=== PATIENT | male | born 1960 | race Caucasian/White ===

== ENCOUNTER 2017-07-09 04:19 | Observation (INO) | payer MEDICARE, MEDICAID ==
[2017-07-09] VITALS (10 sets, daily range): BP systolic 135–147; BP diastolic 73–84; PULSE 73–102; RESP 16–20; TEMP 96.6–97.9; O2SAT 95–98
[~2017-07-09 04:19] MED LIST: CHLO10 PO; HYDR-3535 PO; TRAZ50TA78 PO
[2017-07-09] MEDS ORDERED: IOHEXOL 350 MG/ML 10 ML VIAL (for RAD DIAG) IVCONTRAST ONE (04:20)
[2017-07-09] MEDS ORDERED: NITROGLYCERIN 2% OINT 1 GM PACKET TOP ONE (04:30)
[2017-07-09] MEDS ORDERED: ONDANSETRON HCL 4 MG/2 ML VIAL IV PUSH ONE (04:30)
[2017-07-09] MEDS ORDERED: SODIUM CHLORIDE 0.9% FLUSH 10 ML FLUSH IVF PRN (04:30)
[2017-07-09] MEDS ORDERED: MORPHINE SULFATE 4 MG/ML INJ IV PUSH ONE (04:30)
[2017-07-09] MEDS ORDERED: SODIUM CHLORID 0.9% 500 ML INJ 500 ML IV ONE (04:30)
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
[2017-07-09 04:53] LABS: AUTOMATED NEUTROPHIL # 2.8 TH/MM3 (1.8-7.7); BASOPHIL # 0.1 TH/MM3 (0-0.2); BASOPHIL % 1.3 % (0.0-2.0); EOSINOPHIL % 0.7 % (0.0-4.0); HEMATOCRIT 36.9 % (39.0-51.0); HEMOGLOBIN 12.1 GM/DL (13.0-17.0); LYMPH % 36.3 % (9.0-44.0); MEAN CELL VOLUME 87.6 FL (80.0-100.0); MEAN CORPUSCULAR HEMOGLOBIN 28.8 PG (27.0-34.0); MEAN CORPUSCULAR HGB CONC 32.8 % (32.0-36.0); MEAN PLATELET VOLUME 8.3 FL (7.0-11.0); MONO % 10.8 % (0.0-8.0); MONOCYTE # 0.6 TH/MM3 (0-0.9); NEUT % 50.9 % (16.0-70.0); PLATELET COUNT 170 TH/MM3 (150-450); RED CELL DISTRIBUTION WIDTH 16.5 % (11.6-17.2); WHITE BLOOD COUNT 5.5 TH/MM3 (4.0-11.0)
--- NOTE | 2017-07-09 04:59 | RADRPT ---
EXAM DATE/TIME: 07/09/2017 04:44 [facility] COMPARISON: CHEST PA & LAT, September 14, 2015, 9:36. INDICATIONS : Chest pain. MEDICAL HISTORY : Osteoporosis. Cardiovascular disease. SURGICAL HISTORY : Rotator cuff repair-bilateral, Bilateral hip. ENCOUNTER: Initial ACUITY: 1 day PAIN SCORE: 10/10 LOCATION: Bilateral chest FINDINGS: PA and lateral views of the chest demonstrate the lungs to be symmetrically aerated without evidence of mass, infiltrate or effusion. The cardiomediastinal contours are unremarkable. Moderate severe d egenerative changes in the mid thoracic spine, stable from 2016. CONCLUSION: No acute cardiopulmonary disease. Morris Styles MD on July 09, 2017 at 4:55 Board Certified Radiologist. This report was verified electronically.
[2017-07-09 05:01] LABS: INTERNATIONAL NORMALIZED RATIO 1.1 RATIO; PROTHROMBIN TIME - PATIENT 10.7 SEC (9.8-11.6)
[2017-07-09 05:08] LABS: ALBUMIN 3.2 GM/DL (3.4-5.0); AST (GOT) 60 U/L (15-37); BICARBONATE 22.5 MEQ/L (21.0-32.0); BLOOD UREA NITROGEN 6 MG/DL (7-18); CHLORIDE 106 MEQ/L (98-107); CREATININE 0.61 MG/DL (0.60-1.30); GLOMERULAR FILTRATION RATE 136 ML/MIN (>89); GLUCOSE,RANDOM 83 MG/DL (74-106); MAGNESIUM 1.7 MG/DL (1.5-2.5); SODIUM (NA) 141 MEQ/L (136-145)
[2017-07-09 05:09] LABS: ALT (GPT) 41 U/L (12-78)
[2017-07-09 05:12] LABS: ALKALINE PHOSPHATASE 92 U/L (45-117); TOTAL BILIRUBIN ADULT 0.3 MG/DL (0.2-1.0); TOTAL PROTEIN 8.7 GM/DL (6.4-8.2); TROPONIN I LESS THAN 0.02 NG/ML (0.02-0.05)
--- NOTE | 2017-07-09 05:53 | RADRPT ---
EXAM DATE/TIME: 07/09/2017 05:30 [facility] COMPARISON: No previous studies available for comparison. INDICATIONS : Chest pain. Hip replacement 4 weeks ago. IV CONTRAST: 75 cc Omnipaque 350 (iohexol) IV RADIATION DOSE: 9.59 CTDIvol (mGy) MEDICAL HISTORY : Deep venous thrombosis. SURGICAL HISTORY : Left hip replacement ENCOUNTER: Initial ACUITY: 1 day PAIN SCALE: 6/10 LOCATION: Bilateral chest TECHNIQUE: Volumetric scanning of the chest was performed using a pulmonary embolism protocol MIP images were re constructed. Using automated exposure control and adjustment of the mA and/or kV according to patien t size, radiation dose was kept as low as reasonably achievable to obtain optimal diagnostic quality images. DICOM format image data is available electronically for review and comparison. Follow-up recommendations for detected pulmonary nodules are based at a minimum on nodule size and pa tient risk factors according to Fleischner Society Guidelines. FINDINGS: Lungs are clear. No pleural or pericardial effusions are identified. Coronary calcification is noted. Subcentimeter mediastinal lymph nodes. There is no evidence for pulmonary embolus or pneumonia. Ther e is hepatic steatosis. Osseous structures are intact. Atherosclerotic calcifications of the aorta ar e noted. CONCLUSION: No evidence for pulmonary embolism. Atherosclerosis. Thor Diez MD on July 09, 2017 at 5:47 Board Certified Radiologist. This report was verified electronically.
[2017-07-09] MEDS: ACETAMINOPHEN/HYDROcodone 325 MG/7.5 MG TAB PO PRN ×2 (06:25→13:08)
[2017-07-09] MEDS: SODIUM CHLOR 0.9% 1000 ML INJ 1,000 ML IV SCH ×2 (06:25→16:16)
[2017-07-09] MEDS ORDERED: NITROGLYCERIN 0.4 MG SL 25 TABS/BTL SL PRN (06:30)
[2017-07-09] MEDS ORDERED: ONDANSETRON HCL 4 MG/2 ML VIAL IV PUSH PRN (06:30)
[2017-07-09] MEDS ORDERED: SODIUM CHLORIDE 0.9% FLUSH 10 ML FLUSH IV FLUSH PRN (06:30)
[2017-07-09] MEDS ORDERED: MORPHINE SULFATE 4 MG/ML INJ IV PUSH PRN (06:30)
[2017-07-09] MEDS ORDERED: ACETAMINOPHEN 500 MG CPLT PO PRN (06:30)
[2017-07-09 08:30] LABS: TROPONIN I LESS THAN 0.02 NG/ML (0.02-0.05)
[2017-07-09] MEDS ORDERED: ASPIRIN 325 MG TAB PO SCH (09:00)
[2017-07-09] MEDS ORDERED: FAMOTIDINE 20 MG TAB PO SCH (09:00)
[2017-07-09] MEDS ORDERED: SODIUM CHLORIDE 0.9% FLUSH 10 ML FLUSH IV FLUSH SCH (09:00)
[2017-07-09] MEDS ORDERED: RESP: ALBUTEROL 2.5 MG/IPRATROPIUM 0.5 MG NEB (PRN) INH (10:30)
--- NOTE | 2017-07-09 10:37 | HHI.HP ---
HPI Primary Care Physician Non-Staff Chief Complaint Chest pain History of Present Illness This is a 57-year-old male who presents to ED via [facility] with a complaint of chest discomfort. He states that he is awoken 3:00 in the morning with a pressure in the center of his chest. Discomfort was rated as an 8 out of 10. He states he was given sublingual nitroglycerin in the back which would not change his symptoms. Discomfort is still there. Morphine has seem to help. He denied shortness of breath, nausea, or diaphoresis. Admits to using crack cocaine last night and then states "but I never have a problem with cocaine." Also states he recently had a left total hip replaced 4 weeks ago at [facility]. Admits to tobacco abuse also. Also admits to being an alcoholic. States he drinks at least 12 pack of beer per day. Denies ever having DTs. Denies recent illness. Denies fevers or chills. Upon reviewing records patient had a nonischemic Lexiscan in 2013. Review of Systems General: Patient denies fevers, chills, and recent travel. HEENT: Patient denies headache, sore throat, difficulty swallowing. Cardiovascular: Has the chest discomfort as mentioned above. Denies sensation of heart beating rapidly or irregularly. No syncope. Denies diaphoresis. Respiratory: Denies shortness of breath or inspirational chest discomfort. Denies coughing wheezing or hemoptysis. GI: Patient denies nausea, vomiting, diarrhea, abdominal pain, bloody stools. Musculoskeletal: Chronic bilateral hip pain. Total left hip replaced month ago. Patient denies joint pain or edema. Denies calf pain or edema. Neurovascular: Patient denies numbness, tingling, weakness in extremities. Denies headache. Endocrine: Denies polyuria and polydipsia. Hematologic: Denies easy bruising. Skin: Denies rash or itching. Past Family Social History Allergies: Coded Allergies: No Known Allergies (Verified Allergy, Unknown, 07/09/17) Past Medical History Recent total left hip replacement 4 weeks ago. Tobacco abuse. Cocaine abuse. Alcohol abuse. States is disabled secondary osteoporosis. Denies hypertension , hyperlipidemia, diabetes, and CAD. Past Surgical History Bilateral total hip replacements, most recently left hip. 2 shoulder surgeries. Reported Medications Reported Meds & Active Scripts Active Active Ordered Medications Current Medications Medications (Trade) Dose Ordered Sig/Sasha Route Start Time Stop Time Status Last Admin Sodium Chloride 1,000 ml @ 100 mls/hr Q10H IV 07/09/17 06:16 07/09/17 06:25 (NS Flush) 2 ml UNSCH PRN IV FLUSH 07/09/17 06:30 (NS Flush) 2 ml BID IV FLUSH 07/09/17 09:00 (Tylenol) 500 mg Q4H PRN PO 07/09/17 06:30 ([place] 7.5-325 Mg) 1 tab Q4H PRN PO 07/09/17 06:30 07/09/17 06:25 (Morphine Inj) 2 mg Q4H PRN IV PUSH 07/09/17 06:30 07/09/17 09:56 (Zofran Inj) 4 mg Q6H PRN IV PUSH 07/09/17 06:30 (Pepcid) 20 mg BID PO 07/09/17 09:00 07/09/17 07:39 (Nitrostat Sl) 0.4 mg Q5M PRN SL 07/09/17 06:30 (Aspirin) 325 mg DAILY PO 07/09/17 09:00 07/09/17 07:39 (Librium) 20 mg NOW ONCE PO 07/09/17 10:15 07/09/17 10:16 UNV Family History Denies family history of CAD. Social History Smokes 1 pack of cigarettes daily and has done so for 40 years. Has on average a 12 pack of beer per day. Smokes crack cocaine regularly and last time being was last evening. Physical Exam Vital Signs Vital Signs Date Time Temp Pulse Resp B/P (MAP) Pulse Ox O2 Delivery O2 Flow Rate FiO2 07/09/17 09:00 96.6 78 20 147/84 (105) 95 07/09/17 08:20 97.8 78 16 138/81 (100) 99 07/09/17 07:38 97.8 80 17 140/81 (100) 98 Room Air 07/09/17 07:30 80 18 98 Room Air 07/09/17 07:30 17 07/09/17 06:21 98 07/09/17 06:12 138/73 (94) 07/09/17 04:39 97.9 07/09/17 04:38 98 Room Air 07/09/17 04:38 98 Room Air 07/09/17 04:31 135/78 (97) 07/09/17 04:24 102 16 98 Physical Exam GENERAL: This is a well-nourished, well-developed patient, in no apparent distress. Patient speaks in clear complete sentences. Patient is pleasant. HEENT: Head is atraumatic and normocephalic. Neck is supple without lymphadenopathy and trachea is midline. No JVD or carotid bruits. CARDIOVASCULAR: Regular rate and rhythm without murmurs, gallops, or rubs. RESPIRATORY: Clear to auscultation. Breath sounds equal bilaterally. No wheezes , rales, or rhonchi. Chest wall is tender worsening the symptoms that he has been having. No use of accessory muscles. GASTROINTESTINAL: Abdomen is nontender, nondistended. Abdomen soft. No obvious pulsatile mass or bruit. No CVA tenderness. Strong femoral pulses bilaterally. Normal bowel sounds in all quadrants. MUSCULOSKELETAL: Patient is moving upper and lower extremities freely. No calf tenderness or edema, no Homans sign. Strong pulses in upper and lower extremities. NEUROLOGICAL: Patient is alert and oriented. Cranial nerves 2-12 are grossly intact. No focal deficits and speech is clear. SKIN: No rash and turgor is normal. Laboratory Laboratory Tests Test 07/09/17 04:33 07/09/17 07:30 White Blood Count 5.5 Red Blood Count 4.20 Hemoglobin 12.1 Hematocrit 36.9 Mean Corpuscular Volume 87.6 Mean Corpuscular Hemoglobin 28.8 Mean Corpuscular Hemoglobin Concent 32.8 Red Cell Distribution Width 16.5 Platelet Count 170 Mean Platelet Volume 8.3 Neutrophils (%) (Auto) 50.9 Lymphocytes (%) (Auto) 36.3 Monocytes (%) (Auto) 10.8 Eosinophils (%) (Auto) 0.7 Basophils (%) (Auto) 1.3 Neutrophils # (Auto) 2.8 Lymphocytes # (Auto) 2.0 Monocytes # (Auto) 0.6 Eosinophils # (Auto) 0.0 Basophils # (Auto) 0.1 CBC Comment DIFF FINAL Differential Comment Prothrombin Time 10.7 Prothromb Time International Ratio 1.1 Activated Partial Thromboplast Time 26.4 Blood Urea Nitrogen 6 Creatinine 0.61 Random Glucose 83 Total Protein 8.7 Albumin 3.2 Calcium Level 8.0 Magnesium Level 1.7 Alkaline Phosphatase 92 Aspartate Amino Transf (AST/SGOT) 60 Alanine Aminotransferase (ALT/SGPT) 41 Total Bilirubin 0.3 Sodium Level 141 Potassium Level 3.4 Chloride Level 106 Carbon Dioxide Level 22.5 Anion Gap 13 Estimat Glomerular Filtration Rate 136 Total Creatine Kinase 210 197 Creatine Kinase MB 1.5 1.4 Troponin I LESS THAN 0.02 LESS THAN 0.02 Lipase 82 Ethyl Alcohol Level 211 Result Diagram: 07/09/17 0433 07/09/17432 Imaging Last 48 hours Impressions Chest X-Ray 07/09/17427 Signed Impressions: Service Date/Time: Sunday, July 09, 2017 04:44 - CONCLUSION: No acute cardiopulmonary disease. Morris Styles MD CT Angiography 07/09/17427 Signed Impressions: Service Date/Time: Sunday, July 09, 2017 05:30 - CONCLUSION: No evidence for pulmonary embolism. Atherosclerosis. Thor Diez MD Course EKGs are sinus rhythm without significant ST segment depressions or elevations. Caprini VTE Risk Assessment Caprini VTE Risk Assessment: No/Low Risk (score <= 1) Caprini Risk Assessment Model Point Value = 1 Point Value = 2 Point Value = 3 Point Value = 5 Age 41-60 Minor surgery BMI > 25 kg/m2 Swollen legs Varicose veins or History of unexplained or recurrent spontaneous Oral contraceptives or hormone replacement Sepsis (< 1 month) Serious lung disease, including pneumonia (< 1 month) Abnormal pulmonary function Acute myocardial infarction Congestive heart failure (< 1 month) History of inflammatory bowel disease Medical patient at bed rest Age 61-74 Arthroscopic surgery Major open surgery (> 45 min) Laparoscopic surgery (> 45 min) Malignancy Confined to bed (> 72 hours) Immobilizing plaster cast Central venous access Age >= 75 History of VTE Family history of VTE Factor V Leiden Prothrombin [id number] Lupus anticoagulant Anticardiolipin antibodies Elevated serum homocysteine Heparin-induced thrombocytopenia Other congenital or acquired thrombophilia Stroke (< 1 month) Elective arthroplasty Hip, pelvis, or leg fracture Acute spinal cord injury (< 1 month) Prophylaxis Regimen Total Risk Factor Score Risk Level Prophylaxis Regimen 0-1 Low Early ambulation 2 Moderate Order ONE of the following: *Sequential Compression Device (SCD) *Heparin 5000 units SQ BID 3-4 Higher Order ONE of the following medications: *Heparin 5000 units SQ TID *Enoxaparin/Lovenox 40 mg SQ daily (WT < 150 kg, CrCl > 30 mL/min) *Enoxaparin/Lovenox 30 mg SQ daily (WT < 150 kg, CrCl > 10-29 mL/min) *Enoxaparin/Lovenox 30 mg SQ BID (WT < 150 kg, CrCl > 30 mL/min) AND/OR *Sequential Compression Device (SCD) 5 or more Highest Order ONE of the following medications: *Heparin 5000 units SQ TID (Preferred with Epidurals) *Enoxaparin/Lovenox 40 mg SQ daily (WT < 150 kg, CrCl > 30 mL/min) *Enoxaparin/Lovenox 30 mg SQ daily (WT < 150 kg, CrCl > 10-29 mL/min) *Enoxaparin/Lovenox 30 mg SQ BID (WT < 150 kg, CrCl > 30 mL/min) AND *Sequential Compression Device (SCD) Assessment and Plan Assessment and Plan * Chest pain: Patient has had 2 cardiac enzymes and EKGs for ruling out purposes. He will be seen by Dr. Sanford of cardiology in the chest pain center. He will have a Lexiscan myocardial perfusion stress test and if nonischemic will be discharged with instructions to follow-up with PCP. Return to ED for interval issues. He is to stop smoking, decrease alcohol intake, stop using cocaine. * Tobacco abuse: Patient has been counseled on importance of tobacco cessation. * Alcohol abuse: Patient has been counseled on the importance of significantly reducing and eventually limiting alcohol abuse. * Cocaine abuse: Patient has been counseled personally using cocaine. Has been explained to him that this can kill him. Patient is stable at this time. He is agreeable to this plan. Frederick Obando Jul 09, 2017 10:37
[2017-07-09] MEDS ORDERED: POTASSIUM CHLORIDE 20 MEQ CONTROLLED RELEASE TAB PO ONE (11:15)
[2017-07-09] MEDS ORDERED: REGADENOSON INJ 0.4 MG/5 ML SYR ONE (11:24)
[2017-07-09] MEDS ORDERED: AMINOPHYLLINE INJ 500 MG/20 ML VIAL ONE (12:03)
[2017-07-09 12:22] LABS: TROPONIN I LESS THAN 0.02 NG/ML (0.02-0.05)
--- NOTE | 2017-07-09 13:11 | RADRPT ---
EXAM DATE/TIME: 07/09/2017 11:18 [facility] COMPARISON: No previous studies available for comparison. INDICATIONS : Substernal chest pain. Angina. DOSE: 25.5 mCi Tc99m Myoview at stress. 8.8 mCi Tc99m Myoview at rest. 0.4 mg Lexiscan STRESS SYMPTOMS: Shortness of breath, nausea, vomiting. MEDICATIONS: 1.) 100 mg Aminophylline IV EJECTION FRACTION: > 70% MEDICAL HISTORY : Deep venous thrombosis. SURGICAL HISTORY : Left hip replacement. ENCOUNTER: Initial ACUITY: 1 day PAIN SCALE: 3/10 LOCATION: Substernal chest TECHNIQUE: The patient underwent pharmacologic stress with infusion of prescribed dose. Continuous ECG tracing was monitored during stress. Gated SPECT imaging was performed after stress and conventional SPECT i maging was performed at rest. The examination was performed on a SPECT/CT scanner, both attenuation and non-corrected datasets were reviewed. FINDINGS: DISTRIBUTION: The maximum perfused segment at stress is in the lateral wall. PERFUSION STUDY: There is a small area of decreased activity in the apical portion of the anterior wall on the stress images compared to rest images in your of the 10-20% decreased activity which is equivocal. GATED STUDY: There is intact wall motion and thickening without hypokinetic or dyskinetic segments. CONCLUSION: No definite areas of ischemia are seen. There is a small area of decreased activity on the stress annelise ges compared to rest images at the apical anterior wall which is equivocal. RISK CATEGORY: Low (<1% Annual Mortality Rate) Deondre Velasco MD on July 09, 2017 at 13:05 Board Certified Radiologist. This report was verified electronically.
--- NOTE | 2017-07-09 13:48 | HHI.DCPOC ---
Discharge Care Plan Diagnosis: (1) Chest pain (2) Cocaine abuse (3) Tobacco abuse (4) Mediastinal lymphadenopathy Goals to Promote Your Health Discuss lymph nodes seen on CT with your primary care doctor. * To prevent worsening of your condition and complications * To maintain your health at the optimal level Directions to Meet Your Goals Take your medications as prescribed Follow your dietary instruction Follow activity as directed Keep your appointments as scheduled Take your immunizations and boosters as scheduled If your symptoms worsen call your PCP, if no PCP go to Urgent Care Center or Emergency Room Smoking is Dangerous to Your Health. Avoid second hand smoke Call the 24-hour hour crisis hotline for domestic abuse at [facility] Jul 09, 2017 13:48
[2017-07-09] MEDS ORDERED: KETOROLAC TROMETHAMINE 30 MG/ML (IVP) VIAL IVP ONE (14:15)
--- NOTE | 2017-07-09 14:26 | TR ---
Date Performed: 07/09/2017 Time Performed: 11:37:45 DOCTOR: Don Sanford DRUG LIST: CLINICAL HISTORY: ANGINA REASON FOR TEST: REASON FOR ENDING: OBSERVATION: CONCLUSION: COMMENTS: Lexiscan stress test was performed under standard four minute protocol. Radionuclide was injected one minute prior to ending the test. No electrocardiographic abormalities were present t o suggest ischemia. Nuclear imaging and interpretation are pending.
--- NOTE | 2017-07-09 14:28 | EKG ---
Date Performed: 07/09/2017 Time Performed: 09:42:01 PTAGE: 57 years EKG: Sinus rhythm NORMAL ECG PREVIOUS TRACING : 07/09/2017 04.31 Since previous tracing, no significant change noted DOCTOR: Don Sanford Interpretating Date/Time 07/09/2017 14:26:59
--- NOTE | 2017-07-09 14:30 | EKG ---
Date Performed: 07/09/2017 Time Performed: 04:31:22 PTAGE: 57 years EKG: Normal ECG Since PREVIOUS TRACING , no significant change noted DOCTOR: Don Sanford Interpretating Date/Time 07/09/2017 14:29:21
--- NOTE | 2017-07-09 14:42 | EKG ---
Date Performed: 07/09/2017 Time Performed: 07:36:50 PTAGE: 57 years EKG: Sinus rhythm NORMAL ECG PREVIOUS TRACING : 07/09/2017 04.31 Since previous tracing, no significant change noted DOCTOR: Don Sanford Interpretating Date/Time 07/09/2017 14:40:39
== END 2017-07-09 16:51 | disposition home or self-care (01) ==
LOC: NEPC 04:19 → NEDA 06:51 → NEPGCP 08:57
DX: R07.89 Other chest pain (principal); F10.10 Alcohol abuse, uncomplicated; F14.10 Cocaine abuse, uncomplicated; F31.9 Bipolar disorder, unspecified; F20.9 Schizophrenia, unspecified; M81.0 Age-related osteoporosis without current pathological fracture; M19.90 Unspecified osteoarthritis, unspecified site; F17.210 Nicotine dependence, cigarettes, uncomplicated; Z96.643 Presence of artificial hip joint, bilateral
CPT/HCPCS: 71046; 71275; 78452; 80053; 80307; 82550; 82552; 83690; 83735; 84484; 85025; 85610; 85730; 93005; 93017; 96361; 96374; 96375; 96376; 99285; A9502; G0378; J0280; J1885; J2270; J2405; J2785; J7030; J7040; Q9967